=== PATIENT | male | born 1975 | race Caucasian/White ===

== ENCOUNTER 2017-03-03 12:01 | Inpatient (IN) | payer OTHER ==
[~2017-03-03] VITALS: Ht 175.2 cm; Wt 127.0 kg
--- NOTE | ~2017-03-03 | CON ---
[place], [place] REPORT OF CONSULTATION NAME: KELSEY HERNANDEZ [facility] #: [id number] UNIT #: [id number] ROOM: 401 DOCTOR: MIGUEL MEDINA MD BIRTHDATE: [birth year] DOS: 03/04/2017 REASON FOR CONSULTATION: Chest pain, history of coronary artery disease. HISTORY OF PRESENT ILLNESS: The patient is a 41-year-old man who does have a history of bipolar disorder, but also has a history of hypertension, hyperlipidemia and atherosclerotic heart disease. He tells me that he presented with chest pain to the [facility] in 2012. He did have heart catheterization by Dr. Olivo and was found to have a tight LAD stenosis. He did undergo stenting of the LAD, 11/19/2012. The patient did have some pictures of the angiograms and it does show that he had a good angiographic response in the LAD, but probably had a jailed diagonal branch as part of the procedure. The patient states he has had no problems since then until now. He was treated for a time with aspirin, statin and beta blockers, but about a year ago stopped taking the medications. He has not seen a quarter inspector for followup in sometime as well. The patient was interviewed with his mother in attendance. He stated that he was doing well until 6 days ago; however, his mother states that for the last 6-7 months, he has had unexplained episodes of diaphoresis and for the last 3 weeks, he has had episodes of nausea and vomiting without provocation. The patient states that he has been weak and tired lately. His chest pains began at least 6 days ago and have worsened since then. He describes an aching in his left chest with radiation into his left back, associated dyspnea, diaphoresis and vomiting on several occasions. He has also been much more tired in the last 24 hours. He therefore came to Emergency Room last evening. His electrocardiogram showed sinus rhythm and no acute ST changes. Cardiac troponin levels have been negative thus far. Dr. Lozoya was consulted, but could not attend the patient because of a personal illness. He therefore requested that we see the patient. At present, the patient is lying flat in bed and seems fairly comfortable, although he states that the pain is still present. PAST MEDICAL HISTORY: Includes, 1. Coronary artery disease, status post angioplasty of the LAD, 11/19/2012 at the [facility] by Dr. Olivo. The patient does have some pictures of his angiogram, which show jailing of the diagonal branch. 2. Essential hypertension. 3. Hyperlipidemia. 4. Obesity. REVIEW OF SYSTEMS: The patient denies diplopia or loss of vision. He denies focal weakness. He has had nausea, vomiting, diaphoresis and dyspnea as noted above. He has had chest pain as noted above. He denies cough or hemoptysis. He denies change in bowel or bladder habits and denies blood in his stools or urine. He denies coffee ground emesis or melena. He denies any persistent lower extremity swelling, although he states he does get some ankle swelling from time to time. The remainder of the review of systems is negative except as noted above. [place], [place] REPORT OF CONSULTATION NAME: KELSEY HERNANDEZ UNIT #: [id number] ROOM: [facility] DOCTOR: MIGUEL MEDINA MD BIRTHDATE: [birth year] FAMILY HISTORY: Negative for early coronary artery disease. SOCIAL HISTORY: The patient lives with his mother. He is unemployed. He does not smoke cigarettes, although he does use marijuana. He does not consume alcohol. MEDICATIONS: Prior to admission cariprazinen 4.5 mg daily, ibuprofen 800 mg t.i.d. with food and sertraline 100 mg daily. ALLERGIES: He has no known drug allergies. PHYSICAL EXAMINATION: GENERAL: The patient is an overweight white male who is awake, alert and oriented. VITAL SIGNS: Pulse is 99 and regular, blood pressure is 140/81. He is afebrile. He weighs 127 kg and has a body mass index of 41.4. HEENT: Normocephalic and atraumatic. Extraocular muscles are intact. Sclerae are clear. Pupils are equal, round and reactive to light. The oral mucosa is moist. Tongue is midline. NECK: Supple. He has no jugular distention. Carotids are full. I heard no bruits. He had no neck or supraclavicular masses and no thyromegaly. LUNGS: Respirations are unlabored. His chest is clear to auscultation and percussion. He has no presacral edema or chest wall tenderness. HEART: Has a regular rhythm. He has a fourth heart sound, but no third heart sound or murmur. The PMI is not displaced. His chest does have some mild tenderness, but this does not completely reproduce his pain. ABDOMEN: Soft, nontender, normoactive without masses, organomegaly or rebound. EXTREMITIES: Showed no clubbing, cyanosis or edema. Peripheral pulses were palpable in the feet. LABORATORY DATA: Electrocardiogram shows sinus tachycardia at a rate of 103. No acute ST or T-wave changes are seen. Troponin levels are normal x 4. Hemoglobin is 14.6, white count 9000. Total cholesterol is 309 with triglycerides 273, LDL is 217, and HDL is 37. IMPRESSION: 1. Atypical precordial chest pain. The patient has had pain for several days without any acute EKG changes or elevation in cardiac troponin levels. It is therefore unlikely that his pains represent an acute coronary event; however, he certainly does have risk factors and therefore chronic coronary occlusion and ischemia is possible. 2. Hypertension. 3. Hyperlipidemia. 4. Bipolar disorder. PLAN: We will start the patient back on a beta augie, aspirin and statin. We [place], [place] REPORT OF CONSULTATION NAME: KELSEY HERNANDEZ UNIT #: [id number] ROOM: [facility] DOCTOR: MIGUEL MEDINA MD BIRTHDATE: [birth year] will plan on proceeding with a pharmacologic stress test within the next 24 hours. Further recommendations will depend upon the results of his stress test. I thank the hospitalist physicians for asking our advice regarding the patient's care. MIGUEL MEDINA MD CM:CONSTR:REPORT OF CONSULTATION 1303 03/05/17 0000 interface
[~2017-03-03 12:01] MED LIST: AMOXICILLIN500 MG PO; ASPI-COR81 M1 PO; BACTRIM DS 8001 TAB PO; COREG3.125 MG PO; HYDROCODONE BIT1 T11 PO; KEFLEX500 MG PO; LATU40TA PO; LATU80TA PO; LIPITOR20 MG PO; LITHIUM CARBON600 MG PO; Motrin,Rufen800 MG PO; NORCO 325 MG-51 TAB PO; PREDNICOT10 MG PO; ULTRAM50 MG PO; VISTARIL50 MG PO; ZESTRIL,PRINIVI20 MG PO; ZESTRIL10 MG PO; ZOLOFT100 MG PO
[2017-03-03 12:15] VITALS: BP 147/83
[2017-03-03 12:34] VITALS: BP 109/72
--- NOTE | 2017-03-03 12:34 | NUR ---
PT STATES NO CHANGE FROM NITRO BP DID DROP FROM 148/84 TO 109/72. [facility] T[facility] AWARE. SOFIYA RUANO RN.
[2017-03-03 12:35] LABS: BASO # 0.1 10*3/uL (0.0-0.1); BASO % 0.6 % (0.0-1.0); EOS # 0.2 10*3/uL (0.0-0.4); EOS % 2.7 % (1.0-4.0); HEMATOCRIT 44.8 % (42.0-52.0); HEMOGLOBIN 15.7 g/dl (14.0-18.0); LYMPH # 2.3 10*3/uL (1.3-4.4); LYMPH % 26.5 % (27.0-41.0); MEAN CELL VOLUME 96.8 fl (80.0-94.0); MEAN CORPUSCULAR HGB 33.9 pg (27.0-31.0); MONO # 0.8 10*3/uL (0.1-1.0); MONO % 8.8 % (3.0-9.0); NEUT # 5.2 10*3/uL (2.3-7.9); PLATELET COUNT AUTOMATED 363 10*3/uL (130-400); RED BLOOD COUNT 4.63 10*6/uL (4.50-5.90); RED CELL DISTRI WIDTH 11.6 % (0-14.5); WHITE BLOOD COUNT 8.6 10*3/uL (4.8-10.8)
[2017-03-03 12:57] LABS: ALBUMIN 4.1 gm/dl (3.1-4.5); ALKALINE PHOSPHATASE 89 U/L (45-117); BUN 20 mg/dl (7-24); CHLORIDE 100 mmol/L (98-107); CREATININE 1.18 mg/dL (0.70-1.30); MAGNESIUM 2.1 mg/dL (1.5-2.1); POTASSIUM 4.1 mmol/L (3.5-5.1); SGOT/AST 24 IU/L (3-35); SGPT/ALT 45 U/L (12-78); SODIUM 135 mmol/L (136-145); TOTAL PROTEIN 9.2 gm/dL (6.4-8.2)
[2017-03-03 12:59] LABS: TROPONIN I < 0.015 ng/ml (<0.045)
--- NOTE | 2017-03-03 14:20 | NUR ---
A 41, admitted to , under the services of EROS Zhang DO with a diagnosis of CHEST PAIN R/O UT. Chief complaint is CHEST PAIN SINCE THURSDAY. Patient arrived via wheel chair from ER. Monitor applied. Initial assessment completed. Vital signs taken and recorded. EROS ZHANG DO notified of admission to the unit. Orders received. See assessment for past medical history, medications and allergies. Patient and/or family oriented to unit. [facility] visitation policy reviewed. Clothing/patient valuable form completed. EDUIN SOTO
[2017-03-03] MEDS ORDERED: VRAYLAR4.5 MG PO (14:30)
--- NOTE | 2017-03-03 15:34 | NUR ---
DR CHAPPELL WAS NOTIFIED OF NEW CONSULT ORDER.
--- NOTE | 2017-03-03 15:41 | NUR ---
I NOTIFIED DR CHAPPELL THAT PT STATES HE HAS NOT BEEN TAKING ANY CARDIAC MEDS FOR ABOUT A YEAR. HE STATED HE JUST STOPPED TAKING THEM BECAUSE HE WANTED TOO. THESE MEDS INCLUDED ASA, COREG, ZESTRIL AND LIPITOR.
[2017-03-03 16:00] VITALS: BP 147/90
--- NOTE | 2017-03-03 19:32 | NUR ---
PRN NITRO GIVEN FOR CHEST PAIN 5/10.
[2017-03-03 20:00] VITALS: BP 112/52
--- NOTE | 2017-03-03 20:00 | NUR ---
2 ND DOSE PRN NITRO GIVEN , CHEST PAIN REMAINS 5/10.
--- NOTE | 2017-03-03 20:12 | NUR ---
3 RD DOSE PRN NITRO GIVEN FOR CHEST PAIN 5/10.
--- NOTE | 2017-03-03 20:30 | NUR ---
PRN NITRO EFFECTIVE FOR CHEST PAIN, PT REPORTS 2/10 PAIN CURRENTLY.
--- NOTE | 2017-03-03 21:04 | NUR ---
PRN RESTORIL GIVEN PER PT REQUEST FOR SLEEP.
--- NOTE | 2017-03-03 22:00 | NUR ---
PRN RESTORIL EFFECTIVE, PT RESTING COMFORTABLY.
[2017-03-04] VITALS: BP 134/77
--- NOTE | 2017-03-04 02:44 | NUR ---
PRN NITRO GIVEN FOR 6/10 CHEST PAIN, LEFT UPPER CHEST RADIATING INTO LEFT UPPER BACK.
--- NOTE | 2017-03-04 02:50 | NUR ---
PRN NITRO GIVEN FOR UNRELIEVED CHEST PAIN 6/10 LEFT UPPER CHEST RADIATING INTO LEFT UPPER BACK.
--- NOTE | 2017-03-04 02:56 | NUR ---
PRN NITRO GIVEN FOR 3 RD DOSE CHEST PAIN SLIGHTLY IMPROVED AT 5/10 LEFT UPPER CHEST RADIATING TO LEFT UPPER BACK.
--- NOTE | 2017-03-04 03:05 | NUR ---
PRN NITRO NOT EFFECTIVE FOR CHEST PAIN, PT REPORTS 5/10. REFER TO MAR FOR FOLLOW UP [place].
--- NOTE | 2017-03-04 03:15 | NUR ---
IV RIGHT AC NOT FLUSHING, DISCONTINUED, NEW IV PLACED IN RIGHT AC.
--- NOTE | 2017-03-04 03:24 | NUR ---
PRN ANTINAUSEA MED GIVEN FOR NAUSEA AND DRY HEAVES PROBABLY BROUGHT ON WITH INSERTION OF IV CATH
--- NOTE | 2017-03-04 03:24 | NUR ---
PRN MORPHINE GIVEN FOR 5/10 CHEST PAIN UNRELIEVED WITH 3 DOSES OF NITRO
--- NOTE | 2017-03-04 03:45 | NUR ---
PRN PAIN MED AND ANTINAUSEA MEDS EFFECTIVE, PATIENT DENIES CHEST PAIN OR NAUSEA.
[2017-03-04 07:01] LABS: BASO % 0.4 % (0.0-1.0); EOS # 0.2 10*3/uL (0.0-0.4); EOS % 2.4 % (1.0-4.0); HEMATOCRIT 41.9 % (42.0-52.0); HEMOGLOBIN 14.6 g/dl (14.0-18.0); LYMPH # 2.3 10*3/uL (1.3-4.4); LYMPH % 25.8 % (27.0-41.0); MEAN CELL VOLUME 99.5 fl (80.0-94.0); MEAN CORPUSCULAR HGB 34.7 pg (27.0-31.0); MEAN CORPUSCULAR HGB CONC 34.8 g/dl (33.0-37.0); MONO # 0.8 10*3/uL (0.1-1.0); NEUT # 5.6 10*3/uL (2.3-7.9); NEUT % 62.2 % (47.0-73.0); PLATELET COUNT AUTOMATED 319 10*3/uL (130-400); RED BLOOD COUNT 4.21 10*6/uL (4.50-5.90); RED CELL DISTRI WIDTH 11.7 % (0-14.5)
[2017-03-04 07:35] LABS: ALBUMIN 3.9 gm/dl (3.1-4.5); BUN 17 mg/dl (7-24); CHLORIDE 99 mmol/L (98-107); POTASSIUM 4.4 mmol/L (3.5-5.1); SODIUM 136 mmol/L (136-145)
[2017-03-04 07:43] LABS: ALKALINE PHOSPHATASE 80 U/L (45-117); CHOLESTEROL 309 mg/dL (<200); CREATININE 0.92 mg/dL (0.70-1.30); FREE T4 1.12 ng/dl (0.76-1.46); HDL CHOLESTEROL 37 mg/dl (40-60); LDL CHOLESTEROL 217 mg/dL (9-159); MAGNESIUM 2.3 mg/dL (1.5-2.1); PHOSPHOROUS 3.5 mg/dL (2.5-4.9); SGOT/AST 25 IU/L (3-35); SGPT/ALT 37 U/L (12-78); THYROID STIM HORMONE (HS) 0.755 uIU/ml (0.358-4.75); TOTAL PROTEIN 8.5 gm/dL (6.4-8.2); TRIGLYCERIDES 273 mg/dl (<150); VLDL CHOLESTEROL 55 mg/dL (6-40)
[2017-03-04 08:00] VITALS: BP 140/81
--- NOTE | 2017-03-04 08:00 | NUR ---
Line Up Worker in to talk to patient. Patient states lives at [address] with HIS PARENTS. There are 20 steps in the home. Physician: CHAMA SONIA ELIZABETH Pharmacy: [facility] Home health services: NONE Patient's level of ADLs: INDEPENDENT Patient has working utilities: YES DME: NONE Follow-up physician's appointment after d/c: WILL BE MADE PRIOR TO DC Does patient want to access PORTAL?: Discharge plan HOME. REENA SMITH
--- NOTE | 2017-03-04 08:36 | NUR ---
PT MEDICATED WITH [facility]CO FOR C/O LEFT SIDED UPPER CHEST PAIN. STATES PAIN IS WORSE WITH MOVEMENT AND WHEN HE TAKES A DEEP BREATH.
[2017-03-04 08:37] LABS: VITAMIN D, 25-HYDROXY 15.4 ng/mL (30-100)
[2017-03-04] MEDS ORDERED: Motrin,Rufen800 MG PO (09:56)
--- NOTE | 2017-03-04 10:30 | NUR ---
PT STATED THAT THE NORCO DID TAKE HIS CHEST PAIN FROM A 6 ON THE PAIN SCALE TO A 3 BUT THAT NOW HE IS HAVING SOME NAUSEA AND DID VOMIT X1. PT MEDICATED WITH ZOFRAN ORDERED FOR NAUSEA.
--- NOTE | 2017-03-04 10:59 | NUR ---
I SPOKE WITH DR CHAPPELL WHO STATED THAT DUE TO ILLNESS HE WILL NOT BE ABLE TO SEE PT TODAY AND THAT IF NEEDED PT COULD BE SEEN BY ANOTHER PROCUREMENT SERVICES MANAGER IF THEY COULD. FADY BARNES NP NOTIFIED AND SPOKE WITH [facility] PROCUREMENT SERVICES MANAGER OFFICE HERSELF TO MAKE THEM AWARE OF NEW CONSULT.
[2017-03-04 12:00] VITALS: BP 153/73
--- NOTE | 2017-03-04 12:24 | NUR ---
DR MEDINA IN TO SEE PT.
[2017-03-04 16:00] VITALS: BP 140/80
[2017-03-04 20:00] VITALS: BP 125/61; BP 131/73
[2017-03-05] VITALS: BP 122/55
--- NOTE | 2017-03-05 04:24 | NUR ---
PRN PAIN MED GIVEN FOR 6/10 CHEST PAIN RADIATING INTO LEFT UPPER BACK.
--- NOTE | 2017-03-05 05:16 | NUR ---
PRN PAIN MED EFFECTIVE FOR CHEST PAIN, PT DENIES ANY PAIN.
--- NOTE | 2017-03-05 07:50 | NUR ---
Alert and oriented x3. Lungs clear throughout. Denies pain at this time. States morphine was effective this am. Pt was up and bathed for stress test, pt was tachy with exertion 120-130's. Currently 110's at rest post activity. No edema noted.
[2017-03-05 08:00] VITALS: BP 149/75
--- NOTE | 2017-03-05 08:00 | NUR ---
PRODUCTION DEPARTMENT SUPERVISOR VS. DENIES ANY DC NEEDS. FOR STRESS TEST TODAY.
--- NOTE | 2017-03-05 09:19 | NUR ---
Transport here to take pt for stress testing.
--- NOTE | 2017-03-05 10:00 | NUR ---
INFORMED CONSENT OBTAINED FOR LEXISCAN STRESS TEST WITH DR. MEDINA. RESTING EKG NSR WITH A RESTING HR OF 84 WITH BP OF 184/100. LUNGS CLEAR WITH SPO2 OF 98% ON ROOM AIR. PT COMPLETED A 1:00 LEXISCAN PROTOCOL RECEIVING LEXISCAN 0.4 MG IV OVER 10 SECONDS. HAD NO EKG CHANGES. DID C/O "PAIN THROUGHOUT BODY" THAT WAS RELIEVED IN RECOVERY. HAD A PEAK HR OF 118 WITH BP OF 185/98. LAST RECOVERY HR OF 96 WITH BP OF 170/84. AWAITING SCANNING IN STABLE CONDITION.
[2017-03-05 12:00] VITALS: BP 137/79
[2017-03-05] MEDS ORDERED: ASPIRIN ADULT L81 M2 PO (16:38)
[2017-03-05] MEDS ORDERED: ATORVASTATIN CA80 M1 PO (16:38)
[2017-03-05] MEDS ORDERED: CARVEDILOL6.25 MG PO (16:38)
[2017-03-05] MEDS ORDERED: ZOLOFT100 MG PO (16:40)
[2017-03-05] MEDS ORDERED: VRAYLAR4.5 MG PO (16:40)
--- NOTE | 2017-03-05 17:13 | NUR ---
PT DISCHARGED AT THIS TIME WITH SON TO HOME.
--- NOTE | 2017-03-05 17:13 | NUR ---
Discharge instructions reviewed with patient/family. Patient receptive and verbalizes understanding. Follow-up care arranged. Written instructions given to patient/family. EDUIN SOTO
== END 2017-03-05 17:13 | disposition home or self-care (01) | DRG 206 ==
LOC: ED 12:01 → 4E 13:27 → EDHOLD 13:27 → 4E 13:33
PROVIDERS: Nurse Practitioner Family; Registered Nurse; ADMIT Emergency Medicine
PROC: 4A02XM4 Measurement of Cardiac Total Activity, External Approach (ICD-10-PCS; principal; 2017-03-05)
PROC: 3E073KZ Introduction of Other Diagnostic Substance into Coronary Artery, Percutaneous Approach (ICD-10-PCS; 2017-03-05)
DX: M94.0 Chondrocostal junction syndrome [Tietze] (principal); Z68.41 Body mass index [BMI] 40.0-44.9, adult; I10 Essential (primary) hypertension; E66.01 Morbid (severe) obesity due to excess calories; F41.9 Anxiety disorder, unspecified; F31.9 Bipolar disorder, unspecified; I25.10 Atherosclerotic heart disease of native coronary artery without angina pectoris; E78.5 Hyperlipidemia, unspecified; Z79.82 Long term (current) use of aspirin; Z79.899 Other long term (current) drug therapy; Z82.49 Family history of ischemic heart disease and other diseases of the circulatory system; Z83.3 Family history of diabetes mellitus; Z91.14 Patient's other noncompliance with medication regimen; R73.9 Hyperglycemia, unspecified

== ENCOUNTER → 2017-03-09 | Outpatient (CLI) | payer OTHER ==
[~2017-03-09] MED LIST changes: +ASPIRIN ADULT L81 M2 PO; +ATORVASTATIN CA80 M1 PO; +CARVEDILOL6.25 MG PO; +VRAYLAR4.5 MG PO
[2017-03-10 05:07] LABS: TOTAL PROTEIN, SERUM 6.8 g/dL (6.0-8.5)
[2017-03-10 15:07] LABS: A/G RATIO 1.1 (0.7-1.7); ALBUMIN 3.6 g/dL (2.9-4.4); ALPHA-1-GLOBULIN 0.3 g/dL (0.0-0.4); ALPHA-2-GLOBULIN 0.6 g/dL (0.4-1.0); BETA GLOBULIN 1.1 g/dL (0.7-1.3); GAMMA GLOBULIN 1.2 g/dL (0.4-1.8); GLOBULIN, TOTAL 3.2 g/dL (2.2-3.9); M-SPIKE Not Observed g/dL (Not Observed)
== END | disposition home or self-care (01) ==
LOC: LAB 11:03
PROVIDERS: Internal Medicine
DX: E88.09 Other disorders of plasma-protein metabolism, not elsewhere classified (principal)

== ENCOUNTER 2018-06-06 20:30 | Emergency (ER) | payer OTHER ==
[~2018-06-06] VITALS: Ht 175.2 cm; Wt 131.5 kg
[2018-06-06] MEDS ORDERED: AMOXICILLIN500 M2 PO (20:45)
[2018-06-06] MEDS ORDERED: IBU800 MG PO (20:45)
== END 2018-06-06 21:13 | disposition home or self-care (01) ==
LOC: ED 20:30
DX: H60.92 Unspecified otitis externa, left ear (principal); I10 Essential (primary) hypertension; E78.5 Hyperlipidemia, unspecified; E66.01 Morbid (severe) obesity due to excess calories; Z68.41 Body mass index [BMI] 40.0-44.9, adult

== ENCOUNTER 2019-07-22 06:52 | Emergency (ER) | payer OTHER ==
[~2019-07-22] VITALS: Ht 177.8 cm; Wt 124.7 kg
[~2019-07-22 06:52] MED LIST changes: +AMOXICILLIN500 M2 PO; +IBU800 MG PO
[2019-07-22] MEDS ORDERED: TYLENOL325 M1 PO (08:17)
[2019-07-22] MEDS ORDERED: Motrin,Rufen800 MG PO (08:17)
== END 2019-07-22 08:20 | disposition home or self-care (01) ==
LOC: ED 06:52
DX: K02.9 Dental caries, unspecified (principal); I25.10 Atherosclerotic heart disease of native coronary artery without angina pectoris; E78.00 Pure hypercholesterolemia, unspecified; I10 Essential (primary) hypertension; E66.01 Morbid (severe) obesity due to excess calories; F17.200 Nicotine dependence, unspecified, uncomplicated; Z79.899 Other long term (current) drug therapy; Z79.82 Long term (current) use of aspirin; Z79.2 Long term (current) use of antibiotics; Z68.41 Body mass index [BMI] 40.0-44.9, adult; Z98.61 Coronary angioplasty status

== ENCOUNTER 2021-08-01 13:59 | Emergency (ER) | payer OTHER ==
[~2021-08-01] VITALS: Ht 175.2 cm; Wt 136.1 kg
[~2021-08-01 13:59] MED LIST changes: +TYLENOL325 M1 PO
[2021-08-01] MEDS ORDERED: HYDROCODONE-AC1 EAC1 PO (16:43)
== END 2021-08-01 17:28 | disposition home or self-care (01) ==
LOC: ED 13:59
DX: S42.402A Unspecified fracture of lower end of left humerus, initial encounter for closed fracture (principal); I10 Essential (primary) hypertension; W10.8XXA Fall (on) (from) other stairs and steps, initial encounter; Y93.89 Activity, other specified; Y92.89 Other specified places as the place of occurrence of the external cause; Y99.8 Other external cause status

== ENCOUNTER → 2021-08-12 | Outpatient (CLI) | payer OTHER ==
[~2021-08-12] MED LIST changes: +HYDROCODONE-AC1 EAC1 PO
== END | disposition home or self-care (01) ==
LOC: ORTHO 01:43
PROVIDERS: ATTEND Orthopaedic Surgery
DX: S52.045D Nondisplaced fracture of coronoid process of left ulna, subsequent encounter for closed fracture with routine healing (principal); X58.XXXD Exposure to other specified factors, subsequent encounter